=== PATIENT | male | born 1980 | race Caucasian/White ===

== ENCOUNTER → 2020-03-01 | Outpatient (CLI) | payer OTHER ==
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
== END ==
LOC: KCIC MRI 07:56
PROVIDERS: ATTEND Family Medicine
DX: M75.102 Unspecified rotator cuff tear or rupture of left shoulder, not specified as traumatic (principal); R22.32 Localized swelling, mass and lump, left upper limb
CPT/HCPCS: 73221